=== PATIENT | female | born 1965 | race Hispanic/Latino ===

== ENCOUNTER → 2019-11-09 | Day surgery (SDC) | payer SELFPAY ==
--- NOTE | 2019-11-09 13:08 | RAD REPORT ---
EXAM DESCRIPTION: US - Follow Up [facility] - 11/09/2019 10:25 am CLINICAL HISTORY: ICD N63.0 Breast mass COMPARISON: October 2019 ultrasound. FINDINGS: The patient presented today for a biopsy of a 6 mm mass within the right breast seen on t he prior ultrasound. Sonographic evaluation by the technologist as well as myself could not reproduce a mass. The previous ly seen hypoechoic area within the upper-outer right breast was seen in one plane however it appeared to disperse on the second plane which indicated that it probably represents normal breast tissue rat her than a mass. IMPRESSION: 1. Breast biopsy was not performed as a mass could not be reproduced on today's ultrasou nd. As a precaution it is recommended that the patient have a follow-up right mammogram and right keron ast ultrasound January 2020 for re-evaluation. 2. BI-RADS cactegory 3, probably benign. BI-RAD: 3 ResultCode: PB3
== END ==
LOC: DS 09:36
PROVIDERS: ATTEND Nurse Practitioner Family
DX: N63.11 Unspecified lump in the right breast, upper outer quadrant (principal); Z53.8 Procedure and treatment not carried out for other reasons
CPT/HCPCS: 76642

== ENCOUNTER 2022-11-16 14:10 | Emergency (ER) | payer SELFPAY ==
--- OUTSIDE RECORDS SUMMARY | 2022-11-16 14:13 | XMS REPORT | Continuity of Care Document ---
:1965 Author Organization [facility] t Address [address] [place] [address] Care Team Providers Name Role Phone PCP, PATIENT DOES NOT HAVE A Primary Care Physician UnavailDB cMcann Attending Clinician Unavailable Zachary Escobar Attending Clinician Jeny Quinn Attending Clinician NELSY RESENDIZ Attending Clinician Unavailable Payers Payer Name Policy Type Policy Number Effective Date Expiration Date S vickie MEDICAID ALIEN PENDING 2022 PENDING 00:00:00 [facility] 0-100% [id number] 2013 2014 00:00:00 00:00:00 Problems Condition Condition Condition Status Onset Resolution Last Treating Co mments Source Name Details Category Date Date Treatment Clinician Date Encounter Encounter Disease Active Uni vers for other for other 04-02 ity of general general 00:00: [place] counseling counseling 00 Me dical or advice or advice Bran ch on on contracept contracept ion ion History of History of Disease Active U yamel tubal tubal - ity of ligation ligation 00:00: [place] [facility] Obese Obese Disease Active 2012-10 Univers 11-14 ity of 00:00: [place] 00 [facility] Essential Essential Disease Active 2012-10 Uni vers hypertensi hypertensi 11-14 it y of on, benign [place], [place] [facility] Hyperchole Hyperchole Disease Active 2012-10 U yamel steremia steremia 1-27 ity of 00:00: [address] Vaginal Vaginal Disease Active 2012-10 Univers dryness dryness 11-14 ity of 00:00: [address] Allergies, Adverse Reactions, Alerts Allergy Allergy Status Severity Reaction(s) Onset Inactive Treating Comm ents Source Name Type Date Date Clinician NO KNOWN Drug Active Univers ALLERGIE Class ity of S [facility] Social History Social Habit Start Date Stop Date Quantity Comments Source Exposure to Unable to assess Univers ity of SARS-CoV-2 [facility] (event) [place] Tobacco use and 2021-06-05 2021-06-05 Never used Universit y of exposure 00:00:00 00:00:00 [facility] Alcohol intake 2021-06-05 2021-06-05 Current drinker of Un iversity of 00:00:00 00:00:00 alcohol (finding) [facility] edical [place] Alcohol Comment 2018-05-26 2018-05-26 occasionally Univers ity of 00:00:00 00:00:00 [facility] Sex [birth year] Universit y of 00:00:00 00:00:00 [facility] Smoking Status Start Date Stop Date Source Never smoker [place] [facility] Medications Ordered Filled Start Stop Current Ordering Indication Dosage Frequency Signature Comments Components Source Medication Medication Date Date Medication? Clinician (SIG) Name Name NaCl 0.9% 2020- No 1000mL at 999 Uni vers (NS) bolus 06-05 mL/hr, ity of infusion 06:00: 07:19 1,000 mL, Surya as 1,000 mL 00 :00 IV Medical Piggyback, Branch ONCE, 1 dose, Thu06/05/21 at 0100, STAT azithromyci 2020- No 500mg 500 mg, IV Univers n 06-05 Piggyback, ity of (ZITHROMAX) 06:00: 06:05 [place]CE, 1 [place] 500 mg in 00 :00 dose, Thu Medic al NaCl 0.9% 06/05/21 at Bran ch (NS) 250 mL 0100, VIAL-MATE Administer IV over 60 piggyback Minutes, 250 mL
Reas on for Anti-Infec tive: Documented Infection< br>Documen eve Infection Site: Respirator y
Durat ion of Therapy: 7 days NaCl 0.9% 2020- No 500mL at 999 Univ ers (NS) bolus 06-05 mL/hr, 500 it y of infusion 04:30: 06:00 mL, IV [place] 500 mL 00 :00 Infusion, Medical ONCE, 1 Branch dose, [facility] 06/04/21 at 2330, STAT metoclopram No 10mg 10 mg, Uni vers phani HCl 06-05 Slow IV ity of (REGLAN) 04:30: 04:36 Push, [place] injection 00 :00 ONCE, 1 Medical 10 mg dose, [facility] 06/04/21 at 2330, BONI ketorolac No 30mg 30 mg, [facility] (TORADOL) 06-05 Slow IV ity of injection 04:30: 04:36 Push, [place] 30 mg 00 :00 ONCE, 1 Medical dose, [facility] 06/04/21 at 2330, Routine
tribal council member approving Restricted medication : ZACHARY MALIK F acetaminoph No 1000mg 1,000 mg, Univers en 06-05 Oral, ity of (TYLENOL) 04:22: 04:35 ONCE, 1 [place] tablet 00 :00 dose, [facility] Medical 1,000 mg 06/04/21 at [facility] h 2330, BONI NaCl 0.9% 2020- No 500mL at 999 Univ ers (NS) bolus 06-05 mL/hr, 500 it y of infusion 04:15: 06:15 mL, IV [place] 500 mL 00 :00 Piggyback, Medical ONCE, 1 Branch dose, [facility] 06/04/21 at 2315, STAT ibuprofen No 800mg 800 mg, Uni vers (IBU) 06-02 Oral, ity of tablet 800 04:45: 03:45 ONCE, 1 [place] as mg 00 :00 dose, [facility] 06/01/21 at Branch 2345, BONI acetaminoph 2020- No 1000mg 1,000 mg, Univers en 06-02 Oral, ity of (TYLENOL) 04:45: 03:45 ONCE, 1 [place] tablet 00 :00 dose, Sat Medical 1,000 mg 06/01/21 at [facility] h 2345, Routine albuterol Yes [id number] 2{puff} Inhale 2 Univers 90 8-14 Puffs ity of mcg/actuati 00:00: every 4 Surya as on inhaler 00 (four) Medical hours as Branch needed for Wheezing or Shortness of Breath. azithromyci Yes [id number] 250mg Take 1 Univers n 250 mg 8-14 tablet by ity of tablet 00:00: mouth [place] 00 daily. Medical Take 500 Branch mg day 1, then 250 mg days 2 to 5. bromphenira Yes [id number] 5mL Take 5 mL Univers mine-pseudo 8-14 by mouth 4 it y of ephedrine-D 00:00: (four[place] (BROMFED 00 times Medical DM) 2-30-10 daily as Bran ch mg/5 mL needed for syrup Congestion /Allergies or Cough. albuterol Yes [id number] 2{puff} Inhale 2 Univers 90 8-14 Puffs ity of mcg/actuati 00:00: every 4 Surya as on inhaler 00 (four) Medical hours as Branch needed for Wheezing or Shortness of Breath. azithromyci Yes [id number] 250mg Take 1 Univers n 250 mg 8-14 tablet by ity of tablet 00:00: mouth [place] 00 daily. Medical Take 500 Branch mg day 1, then 250 mg days 2 to 5. bromphenira Yes [id number] 5mL Take 5 mL Univers mine-pseudo 8-14 by mouth 4 it y of ephedrine-D 00:00: (four[place] (BROMFED 00 times Medical DM) 2-30-10 daily as Bran ch mg/5 mL needed for syrup Congestion /Allergies or Cough. predniSONE 2020- No [id number] 40mg Take 2 Univers 20 mg 8-14 08-20 tablets by ity of tablet 00:00: 04:59 mouth [place] 00 :00 daily for Medical 5 days. Branch predniSONE 2020-2020- No [id number] 40mg Take 2 Univers 20 mg 8-14 08-20 tablets by ity of tablet 00:00: 04:59 mouth [place] 00 :00 daily for Medical 5 days. Branch ALOE VERA 2018-0 Yes Take by Unive rs ORAL 8-08 mouth. ity of 18:50: [place] [address] Medical Branch DOCOSAHEXAN 2018-0 Yes Take by Uni vers OIC 8-08 mouth. ity of ACID/EPA 18:50: [place] (FISH OIL 57 Medical ORAL) Branch GARLIC ORAL 2018-0 Yes Take by Uni vers 8-08 mouth. ity of 18:50: [place] [address] Medical Branch LISINOPRIL 2018-0 Yes Take by Univ ers ORAL 8-08 mouth. ity of 18:50: [place] [address] Medical Branch LOVASTATIN 2018-0 Yes Take by Univ ers ORAL 8-08 mouth. ity of 18:50: [place] [address] Medical Branch ALOE VERA 2018-0 Yes Take by Unive rs ORAL 8-08 mouth. ity of 18:50: [place] [address] Medical Branch DOCOSAHEXAN 2018-0 Yes Take by Uni vers OIC 8-08 mouth. ity of ACID/EPA 18:50: [place] (FISH OIL 57 Medical ORAL) Branch GARLIC ORAL 2018-0 Yes Take by Uni vers 8-08 mouth. ity of 18:50: [place] [address] Medical Branch LISINOPRIL 2018-0 Yes Take by Univ ers ORAL 8-08 mouth. ity of 18:50: [place] [address] Medical Branch LOVASTATIN 2018-0 Yes Take by Univ ers ORAL 8-08 mouth. ity of 18:50: [address] Immunizations Ordered Filled Immunization Date Status Comments [facility] e Immunization Name Name TD 2012-06-11 Completed [place] of 00:00:00 [facility] TDAP 2012-06-11 Completed University of 00:00:00 [facility] Rubella 2003-08-01 Completed University of 00:00:00 [facility] Rubella 2003-08-01 Completed [facility] 00:00:00 [facility] Vital Signs Vital Name Observation Time Observation Value Comments Source Systolic blood 2021-06-05 07:00:00 114 mm[Hg] Univer sity of pressure [facility] Branch Diastolic blood 2021-06-05 07:00:00 74 mm[Hg] Unive rsity of pressure [facility] Heart rate 2021-06-05 07:00:00 97 /min [facility] Respiratory rate 2021-06-05 07:00:00 19 /min [facility] Oxygen saturation in 2021-06-05 07:00:00 94 /min University of Arterial blood by [facility] Pulse oximetry Branch Body temperature 2021-06-05 06:02:32 37.5 Betzaida [facility] Body weight 2021-06-05 02:59:00 77.111 kg [facility] BMI 2021-06-05 02:59:00 35.53 kg/m2 [facility] Body temperature 2021-06-02 05:09:00 37.22 Betzaida [facility] Systolic blood 2021-06-02 03:22:00 138 mm[Hg] Univer sity of pressure [facility] Diastolic blood 2021-06-02 03:22:00 81 mm[Hg] [facility] Heart rate 2021-06-02 03:22:00 118 /min [facility] Respiratory rate 2021-06-02 03:22:00 20 /min [facility] Body weight 2021-06-02 03:22:00 77.111 kg [facility] BMI 2021-06-02 03:22:00 35.53 kg/m2 [facility] Oxygen saturation in 2021-06-02 03:22:00 100 /min University of Arterial blood by [facility] Pulse oximetry [place] Procedures Procedure Date / Time Performed Performing Clinician Sourc e LIPASE 2021-06-05 04:17:00 Zachary Malik [facility] COMP. METABOLIC PANEL 2021-06-05 04:17:00 Zachary Malik [facility] ([id number]) [facility] CBC WITH DIFF 2021-06-05 04:17:00 Zachary Malik [facility] D-DIMER 2021-06-05 04:17:00 Zachary Malik [facility] URINALYSIS 2021-06-05 04:17:00 Zachary Malik [facility] LACTIC ACID WHOLE 2021-06-05 04:17:00 Zachary Malik [facility] CONTRAST 2021-06-05 03:29:52 Zachary Malik [facility] NOTICE OF PRIVACY 2021-06-05 02:41:46 Doctor Unassigned, No Univ [facility] CONSENT/REFUSAL FOR 2021-06-05 02:41:18 Doctor Unassigned, No [facility] [place] DIAGNOSIS AND Name Medical Branch TREATMENT XR CHEST 1 VW 2021-06-02 04:02:13 Jeny Priest [facility] CONSENT/REFUSAL FOR 2021-06-02 03:21:50 Doctor Unassigned, No [facility] [place] DIAGNOSIS AND Name Medical Branch TREATMENT Encounters Start End Encounter Admission Attending Care Care Encounter Source Date/Time Date/Time Type Type Clinicians Facility Department ID 2021-08-19 Emergency [facility] [id number] Univers 16:17:36 ity [facility] 2021-08-19 Emergency [facility] [id number] Univers [facility]22-[facility] 2022-06-05 Emergency X OBDULIO, [facility] ERT [id number] Univers 10:20:00 15:22:00 DB [facility] 2021-06-04 2021-06-05 [facility] [id number] Univers 22:01:00 02:25:00 Zachary Mcdaniels [id number] ity of [place] [id number] [facility] [id number] [address] 2021-06-01 2021-06-02 [facility] [id number] Univers 22:30:00 00:10:00 Jeny Mcdaniels [id number] i ty of [place] [id number] [facility] [id number] [address] 2013-10-05 2013-10-05 Outpatient Adrián RESENDIZ [facility] [id number] Univers 08:00:00 08:26:34 NELSY [facility] 2013-09-12 2013-09-12 Outpatient R ASTRID, [facility] [id number] Univers 12:45:00 13:17:13 NELSY biswas [facility] Results Test Description Test Time Test Comments Results Result Comments Source Lactic Acid Whole Blood 2021-06-05 05:19:54 Test Item Value Reference Range Interpretation Comme nts LACTIC ACID (test code = 6527743179) 1.91 mmol/L 0.50-2.20 Lab Interpretation (test code = 07695-1) Normal [place] [id number] 04:45:52 Test Item Value Reference Interpretation Comments Range D-DIMER (test code = See_Comment [Autom ated 0882096384) message] The system which generated this result transmitted reference range : <0.41 ?g/mL (FEU). The reference range was not used to interpret this result as normal/abnormal . MORENA (test code = This test may be MORENA) used in conjunction with a clinical pretest probability (PTP) assessment model to exclude venous thromboembolism (VTE) in patients suspected of deep venous thrombosis (DVT) and pulmonary embolism (PE) A D-Dimer value less than 0.50 ?g/ml (FEU) has a negative predicative value of 96 to 100% (95% CI)and 97 to 100% (95% CI) as an aid in the diagnosis of deep vein thrombosis (DVT) and pulmonary embolism when there is low or moderate pretest probability of PE or DVT. D-Dimer values are expressed in initial fibrinogen equivalent units (FEU)" The assay results should be used with other information, including the clinical context, in forming a diagnosis. Lab Interpretation Normal (test code = 68146-6) [place] [facility] ([id number])2021-06-05 04:44:51 Test Item Value Reference Range Interpretation Comments NA (test code = 136 mmol/L 135-145 2479883447) K (test code = 3.7 mmol/L 3.5-5.0 3135706051) CL (test code = 98 mmol/L 98-108 8229000370) CO2 TOTAL (test code = 25 mmol/L 23-31 2097259074) AGAP (test code = 2-16 3674388381) BUN (test code = 11 mg/dL 7-23 3377801327) GLUCOSE (test code = 184 mg/dL 70-110 H 3927205525) CREATININE (test code = 0.49 mg/dL 0.50-1.04 L 1905335914) TOTAL BILI (test code = 0.5 mg/dL 0.1-1.7 6804990489) CALCIUM (test code = 10.1 mg/dL 8.6-10.6 5434743541) T PROTEIN (test code = 8.5 g/dL 6.3-8.2 H 9647278548) ALBUMIN (test code = 4.5 g/dL 3.5-5.0 5625828722) ALK PHOS (test code = 50 U/L 34-122 4534107364) ALTv (test code = 28 U/L 5-35 2-6) AST(SGOT) (test code = 29 U/L 13-40 2438734120) eGFR (test code = mL/min/1.73m2 5297718675) MORENA (test code = MORENA) Association of Glomerular Filtration Rate (GFR) and Staging of Kidney Disease* + --+ --+ ------+| GFR (mL/min/1.73 m2) ?| With Kidney Damage ?| ?Without Kidney Damage+ --------+ --------+ +| ?>90 ?| ?Stage one ?| ? Normal ?+ ---+ ---+ -------+| ?60-89 ?| ?Stage two ?| ? Decreased GFR ? + --+ --+ ------+| ?30-59 ?| ?Stage three ?| ? Stage three ? + --+ --+ ------+| ?15-29 ?| ?Stage four ? | ? Stage four ?+ ---+ ---+ -------+| ?<15 (or dialysis) ? ?| ?Stage five ? | ? Stage five ?+ ---+ ---+ -------+ *Each stage assumes the associated GFR level has been in effect for at least three months. ?Stages 1 to 5, with or without kidney disease, indicate chronic kidney disease. Notes: Determination of stages one and two (with eGFR >59mL/min/1.73 m2) requires estimation of kidney damage for at least three months as defined by structural or functional abnormalities of the kidney, manifested by either:Pathological abnormalities or Markers of kidney damage (including abnormalities in the composition of the blood or urine or abnormalities in imaging tests). Lab Interpretation Abnormal (test code = 04577-0) [place] [facility] 04:44:11 Test Item Value Reference Range Interpretation Comments LIPASE (test code = 0448513281) 48 U/L 0-220 Lab Interpretation (test code = Normal 06013-1) [place] [facility]21-[facility]18 04:44:01 Test Item Value Reference Range Interpretation Comments APPEARANCE (test code = Cloudy Clear A 0617649395) COLOR (test code = Lynnette Yellow A 1326168468) PH (test code = 4.8-8.0 0332312907) SP GRAVITY (test code = 1.003-1.030 3277201185) GLU U QUAL (test code = 50 mg/dL Normal A 0824079729) BLOOD (test code = Negative Negative 9873768913) KETONES (test code = Negative Negative 6338496510) PROTEIN (test code = 100 mg/dL Negative A 2887-8) UROBILIN (test code = Normal Normal 9912528524) BILIRUBIN (test code = Negative Negative 0200467142) NITRITE (test code = Negative Negative 1364067816) LEUK SE (test code = Negative Negative 8950955327) RBC/HPF (test code = See_Comment [Autom ated message] 4112142380) The system [employer] generated this result transmit eve reference range : 0 - 3 HPF. The refe rence range was not u sed to interpret th is result as normal/abnormal . WBC/HPF (test code = See_Comment [Autom ated message] 0669749691) The system [employer] generated this result transmit eve reference range : 0 - 5 HPF. The refe rence range was not u sed to interpret th is result as normal/abnormal . BACTERIA (test code = Negative Negative 1870630093) MUCOUS (test code = Slight Negative LPF A 2588313178) SQ EPITH (test code = HPF 1017998979) CA OXALATE (test code = See_Comment [Au tomated message] 5457049069) The system [employer] generated this result transmit eve reference range : <=1 HPF. The refere nce range was not u sed to interpret th is result as normal/abnormal . Lab Interpretation (test Abnormal code = 16472-7) [facility] WITH [id number] 04:31:09 Test Item Value Reference Range Interpretation Comments WBC (test code = See_Comment [Automated 6690-2) message] The sy stem which generated this result transmitted reference range : 4.30 - 11.10 10*3/?L. The reference range was not used to interpret this result as normal/abnormal . RBC (test code = See_Comment [Automated 789-8) message] The sy stem which generated this result transmitted reference range : 3.93 - 5.25 10*6/?L. The reference range was not used to interpret this result as normal/abnormal . HGB (test code = 13.0 g/dL 11.6-15.0 718-7) HCT (test code = 38.4 % 35.7-45.2 4544-3) MCV (test code = 85.9 fL 80.6-95.5 787-2) MCH (test code = 29.1 pg 25.9-32.8 785-6) MCHC (test code = 33.9 g/dL 31.6-35.1 786-4) RDW-SD (test code = 40.8 fL 39.0-49.9 30054-8) RDW-CV (test code = 13.0 % 12.0-15.5 788-0) PLT (test code = See_Comment L [Automated 777-3) message] The sy stem which generated this result transmitted reference range : 166 - 358 10*3/ ?L. The reference r toro was not used to interpret this result as normal/abnormal . MPV (test code = 11.7 fL 9.5-12.9 94552-8) NRBC/100 WBC (test See_Comment [Automat ed code = 3964617887) message] The system which generated this result transmitted reference range : 0.0 - 10.0 /100 WBCs. The refer ence range was not u sed to interpret th is result as normal/abnormal . NRBC x10^3 (test code <0.01 See_Comment [Auto mated = 7118973195) message] The s ystem which generated this result transmitted reference range : 10*3/?L. The reference range was not used to interpret this result as normal/abnormal . GRAN MAT (NEUT) % 86.7 % (test code = 770-8) IMM GRAN % (test code 0.40 % = 6712791914) LYMPH % (test code = 7.8 % 736-9) MONO % (test code = 5.0 % 5905-5) EOS % (test code = 0.0 % 713-8) BASO % (test code = 0.1 % 706-2) GRAN MAT x10^3(ANC) 7.78 10*3/uL 1.88-7.09 H (test code = 8630779232) IMM GRAN x10^3 (test 0.04 10*3/uL 0.00-0.06 code = 5332701535) LYMPH x10^3 (test code 0.70 10*3/uL 1.32-3.29 L = 731-0) MONO x10^3 (test code 0.45 10*3/uL 0.33-0.92 = 742-7) EOS x10^3 (test code = <0.03 0.03-0.39 L 711-2) BASO x10^3 (test code <0.03 0.01-0.07 = 704-7) Lab Interpretation Abnormal (test code = 12639-7) [place] [facility]
--- NOTE | 2022-11-16 15:19 | RAD REPORT ---
EXAM DESCRIPTION: CT - CTHCSPWOC - 11/16/2022 3:07 pm CLINICAL HISTORY: pain COMPARISON: No comparisons TECHNIQUE: Axial 5 mm thick images of the head were obtained. Axial 2 mm thick images of the cervical spine were obtained with sagittal and coronal reconstruction images generated and reviewed. All CT scans are performed using dose optimization technique as appropriate and may include automated exposure control or mA/KV adjustment according to patient size. FINDINGS: CT HEAD WITHOUT CONTRAST: No acute hemorrhage, hydrocephalus or extra-axial collection is identified.No areas of brain edema or midline shift. Ethmoid air cell and maxillary sinus thickening.The calvarium is intact. CT CERVICAL SPINE WITHOUT CONTRAST: No fracture or subluxation.No prevertebral soft tissues swelling is identified. Mild multilevel cervi megan spondylosis with varying degrees of neural foraminal narrowing. This is most notable at the C5-6 level were there is moderate neural foraminal narrowing bilaterally. IMPRESSION: No acute intracranial or cervical spine findings.
[2022-11-16] MEDS ORDERED: DIAZEPAM 5 MG TABLET ONE (16:07)
[2022-11-16] MEDS ORDERED: ACETAMIN/CAFFEINE/BUTALB TAB PO ONE (16:08)
--- NOTE | 2022-11-16 16:58 | RAD REPORT ---
EXAM DESCRIPTION: RAD - Lumbar Spine 3 Views - 11/16/2022 4:52 pm CLINICAL HISTORY: RADICULOPATHY COMPARISON: <Comparisons> FINDINGS: No acute fracture. Mild thoracolumbar curvature. Mild disc height loss. Endplate spurring is present. IMPRESSION: No acute osseous abnormality involving the lumbar spine.
--- NOTE | 2022-11-16 17:01 | ER ---
Nurse's Notes [facility] Name: Mayda Church Age: 56 yrs Sex: Female : 1965 Arrival Date: 11/16/2022 Time: 14:11 Bed 11 Private MD: Amanda Aldrdige Diagnosis: Headache;Radiculopathy, lumbar region Presentation: 11/16 14:17 Chief complaint: Patient's son or daughter states: patient has had complaints of back ko1 of head pain x 4 days, also into the neck. She does have some nausea and dizziness. No numbness or weakness on either side. Coronavirus screen: Vaccine status: Patient reports receiving the 2nd dose of the covid vaccine. At this time, the client does not indicate any symptoms associated with coronavirus-19. Ebola Screen: No symptoms or risks identified at this time. Initial Sepsis Screen: Does the patient meet any 2 criteria? No. Patient's initial sepsis screen is negative. Does the patient have a suspected source of infection? No. Patient's initial sepsis screen is negative. Risk Assessment: Do you want to hurt yourself or someone else? Patient reports no desire to harm self or others. Onset of symptoms was November 12, 2022. 14:17 Method Of Arrival: Ambulatory ko1 14:17 Acuity: MELANIE 3 ko1 Triage Assessment: 14:20 General: Appears in no apparent distress. uncomfortable, Behavior is calm, cooperative, ko1 appropriate for age. Pain: Complains of pain in back of head into neck. 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 - Social history:: Smoking status: Patient denies any tobacco usage or history of. Screenin:19 [facility] ED Fall Risk Assessment (Adult) History of falling in the last 3 months, ph including since admission No falls in past 3 months (0 pts) Confusion or Disorientation No (0 pts) Intoxicated or Sedated No (0 pts) Impaired Gait No (0 pts) Mobility Assist Device Used No (0 pt) Altered Elimination No (0 pt) Score/Fall Risk Level 0 - 2 = Low Risk Oriented to surroundings, Maintained a safe environment, Hourly rounding (assess needs \T\ fall precautionary measures) done. Abuse screen: Denies threats or abuse. Denies injuries from another. Nutritional screening: No deficits noted. Tuberculosis screening: No symptoms or risk factors identified. Assessment: 16:18 General: Appears in no apparent distress. comfortable, well groomed, Behavior is calm, ph cooperative, appropriate for age, Denies fever, feeling ill. Pain: Complains of pain in occipital area and base of the skull. Pain: Complains of pain in thoracic area. Neuro: Level of Consciousness is awake, alert, obeys commands, Oriented to person, place, time, situation, Radiology Transcriptionist are equal bilaterally Moves all extremities. Gait is steady, Speech is normal, Facial symmetry appears normal, Reports dizziness, headache occipital area. Cardiovascular: Capillary refill < 3 seconds in bilateral fingers Patient's skin is warm and dry. Respiratory: Airway is patent Respiratory effort is even, unlabored. GI: Reports nausea, Patient currently denies abdominal pain. Derm: Skin is healthy with good turgor, Skin is pink, warm \T\ dry. Musculoskeletal: Circulation, motion, and sensation intact. Range of motion: intact in all extremities. Vital Signs: 14:17 BP 143 / 86; Pulse 86; Resp 16; Temp 98; Pulse Ox 95% ; Weight 72.57 kg; Height 5 ft. 0 ko1 in. (152.40 cm); 14:17 Body Mass Index 31.25 (72.57 kg, 152.40 cm) ko1 [place] Coma Score: 17:03 Eye Response: spontaneous(4). Verbal Response: oriented(5). Motor Response: obeys snw commands(6). Total: 15. ED Course: 14:11 Patient arrived in ED. am2 14:11 Amanda Aldridge is Private Physician. am2 14:20 Triage completed. ko1 14:20 Arm band placed on right wrist. Patient placed in waiting room, Patient notified of ko1 wait time. 14:40 Norma Moody FNP-C is PHCP. snw 14:40 Haroon Moore MD is Attending Physician. snw 15:09 CT Head C Spine In Process Unspecified. EDMS 15:49 Luisa Cummings RN is Primary Nurse. ph 16:19 Patient has correct armband on for positive identification. Placed in gown. Bed in low ph position. Call light in reach. Side rails up X 1. Door closed. Noise minimized. Warm blanket given. 16:54 Lumbar Spine (3 Views) XRAY In Process Unspecified. EDMS 17:00 Amanda Aldridge is Referral Physician. snw 17:18 No provider procedures requiring assistance completed. Patient did not have IV access ph during this emergency room visit. Administered Medications: 16:17 Drug: Valium (diazepam) 5 mg Route: PO; ph 17:17 Follow up: Response: No adverse reaction; Pain is decreased; RASS: Alert and Calm (0) ph 16:17 Drug: Fioricet - Esgic 325 mg-40 mg-50 mg 1 tab-caps Route: PO; ph 17:17 Follow up: Response: No adverse reaction ph Medication: 16:19 VIS not applicable for this client. ph Outcome: 17:00 Discharge ordered by MD. snw 17:18 Discharged to home ambulatory, with family. ph 17:18 Condition: good 17:18 Discharge instructions given to patient, family, Instructed on discharge instructions, follow up and referral plans. medication usage, Demonstrated understanding of instructions, follow-up care, medications, Prescriptions given X 2. 17:19 Patient left the ED. ph Signatures: Dispatcher [employer] EDMS Norma Moody, PANTRY CHEF-C PANTRY CHEF-Csnw Luisa Cummings, RN RN Mena Vilchis Kathy RN RN ko1 Corrections: (The following items were deleted from the chart) 14:23 14:17 Chief complaint: Patient's son or daughter states: patient has had complaints of ko1 back of head pain x 4 days, also into the neck. She does have some nausea and dizziness. ko1
--- NOTE | 2022-11-16 17:01 | EDPHYS ---
Physician Documentation [facility] Name: Mayda Church Age: 56 yrs Sex: Female : 1965 Arrival Date: 11/16/2022 Time: 14:11 Bed 11 Private MD: Amanda Aldridge ED Physician Haroon Moore HPI: 11/16 15:48 This 56 yrs old Female presents to ER via Ambulatory with complaints of back snw of head pain. 15:48 The patient complains of pain to the left occipital area and right occipital area. The snw patient describes the headache as a pressure. Onset: The symptoms/episode began/occurred 4 day(s) ago, and became persistent. Associated signs and symptoms: Pertinent positives: neck stiffness, Pertinent negatives: altered mental status, fever, rash. Severity of symptoms: At its worst the pain was moderate, in the emergency department the pain is unchanged. Headache History: The patient has had previous headaches and this one is similar to previous episodes. The patient has experienced similar episodes in the past, and the symptoms today are exactly the same, usually when really stressed. The patient has not recently seen a physician. 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 - Social history:: Smoking status: Patient denies any tobacco usage or history of. ROS: 15:46 Constitutional: Positive for posterior headache and tightness in shoulders x 4 days, no snw fever. Exam: 15:43 Constitutional: This is a well developed, well nourished patient who is awake, alert, snw and in no acute distress. Eyes: Pupils equal round and reactive to light, extra-ocular motions intact. Lids and lashes normal. Conjunctiva and sclera are non-icteric and not injected. Cornea within normal limits. Periorbital areas with no swelling, redness, or edema. ENT: Nares patent. No nasal discharge, no septal abnormalities noted. Tympanic membranes are normal and external auditory canals are clear. Oropharynx with no redness, swelling, or masses, exudates, or evidence of obstruction, uvula midline. Mucous membranes moist. Neck: Trachea midline, no thyromegaly or masses palpated, and no cervical lymphadenopathy. Supple, full range of motion without nuchal rigidity, or vertebral point tenderness. No Meningismus. Chest/axilla: Normal chest wall appearance and motion. Nontender with no deformity. No lesions are appreciated. Cardiovascular: Regular rate and rhythm with a normal S1 and S2. No gallops, murmurs, or rubs. Normal PMI, no JVD. No pulse deficits. Respiratory: Lungs have equal breath sounds bilaterally, clear to auscultation and percussion. No rales, rhonchi or wheezes noted. No increased work of breathing, no retractions or nasal flaring. Abdomen/GI: Soft, non-tender, with normal bowel sounds. No distension or tympany. No guarding or rebound. No evidence of tenderness throughout. Back: No spinal tenderness. No costovertebral tenderness. Full range of motion. Skin: Warm, dry with normal turgor. Normal color with no rashes, no lesions, and no evidence of cellulitis. Neuro: Awake and alert, GCS 15, oriented to person, place, time, and situation. Cranial nerves II-XII grossly intact. Motor strength 5/5 in all extremities. Sensory grossly intact. Cerebellar exam normal. Normal gait. Psych: Awake, alert, with orientation to person, place and time. Behavior, mood, and affect are within normal limits. 15:43 Head/face: Noted is tenderness, that is moderate, of the left occipital area and right occipital area. 15:43 Musculoskeletal/extremity: Extremities: grossly normal except: noted in the left leg: Pulses: are normal with no appreciated deficits, history of left lower extremity radiculopathy. anterior bilateral shoulders with tenderness, tightness. Vital Signs: 14:17 BP 143 / 86; Pulse 86; Resp 16; Temp 98; Pulse Ox 95% ; Weight 72.57 kg; Height 5 ft. 0 ko1 in. (152.40 cm); 14:17 Body Mass Index 31.25 (72.57 kg, 152.40 cm) ko1 [place] Coma Score: 17:03 Eye Response: spontaneous(4). Verbal Response: oriented(5). Motor Response: obeys snw commands(6). Total: 15. MDM: 14:57 Patient medically screened. shani 17:03 Differential diagnosis: migraine, neoplasm, sinusitis. Data reviewed: vital signs, snw nurses notes, radiologic studies, CT scan, plain films. Historians other than the Patient: Daughter/Son: Daughter. Care significantly affected by the following chronic conditions: Diabetes, Hypertension. Counseling: I had a detailed discussion with the patient and/or guardian regarding: the historical points, exam findings, and any diagnostic results supporting the discharge/admit diagnosis, the presence of at least one elevated blood pressure reading (>120/80) during this emergency department visit, radiology results, the need for outpatient follow up, for definitive care, to return to the emergency department if symptoms worsen or persist or if there are any questions or concerns that arise at home. Response to treatment: the patient's symptoms have markedly improved after treatment. Special discussion: I have referred the patient to see his PCP for further evaluation of high blood pressure. Based on the history and exam findings, there is no indication for further emergent testing or inpatient evaluation. I discussed with the patient/guardian the need to see the back specialist for further evaluation of the symptoms. I discussed with the patient/guardian the need to see the primary care provider for further evaluation of the symptoms. 11/16 14:47 Order name: CT Head C Spine; Complete Time: 15:22 snw 11/16 15:41 Order name: Lumbar Spine (3 Views) XRAY; Complete Time: 16:59 snw Administered Medications: 16:17 Drug: Valium (diazepam) 5 mg Route: PO; ph 17:17 Follow up: Response: No adverse reaction; Pain is decreased; RASS: Alert and Calm (0) ph 16:17 Drug: Fioricet - Esgic 325 mg-40 mg-50 mg 1 tab-caps Route: PO; ph 17:17 Follow up: Response: No adverse reaction ph Disposition: 17:04 Chart complete. snw Disposition Summary: 11/16/22 17:00 Discharge Ordered Location: Home snw Condition: Stable snw Diagnosis - Headache snw - Radiculopathy, lumbar region snw Followup: snw - With: Emergency Department - When: As needed - Reason: Worsening of condition Followup: snw - With: Amanda Aldridge - When: 2 - 3 days - Reason: Recheck today's complaints, Continuance of care, Re-evaluation by your physician Discharge Instructions: - Discharge Summary Sheet snw - General Headache Without Cause snw - Hypertension, Adult snw - Lumbosacral Radiculopathy snw - Muscle Cramps and Spasms snw - Form - Blood Pressure Record Sheet snw - Form - Headache Record snw Forms: - Medication Reconciliation Form snw - Thank You Letter snw - Antibiotic Education snw - Prescription Opioid Use snw Prescriptions: - Mobic 7.5 mg Oral Tablet - take 1 tablet by ORAL route once daily take with food; 20 tablet; Refills: 0, snw Product Selection Permitted - orphenadrine citrate 100 mg Oral Tablet Sustained Release - take 1 tablet by ORAL route 2 times per day As needed; 20 tablet; Refills: 0, snw Product Selection Permitted Signatures: Dispatcher [employer] EDHaroon Alarcon MD MD cha Waters, Shelly, MECHATRONICS ENGINEER-C MECHATRONICS ENGINEER-Luisa Young, RN RN Celeste Tomas RN RN ko1
[2022-11-16 17:34] VITALS: BP 143/86; TEMP 98; O2SAT 95
== END 2022-11-16 17:19 | disposition home or self-care (01) ==
LOC: ER 14:10
DX: R51.9 Headache, unspecified (principal); M54.16 Radiculopathy, lumbar region
CPT/HCPCS: 70450; 72100; 72125; 99283

== ENCOUNTER 2023-07-21 18:45 | Emergency (ER) | payer SELFPAY ==
--- OUTSIDE RECORDS SUMMARY | 2023-07-21 18:50 | XMS REPORT | Continuity of Care Document ---
:1965 Author Organization [facility] t Address [address] [facility] [address] [place] [id number] Care Team Providers Name Role Phone PCP, PATIENT DOES NOT HAVE A Primary Care Physician UnavailFELI Sheets Attending Clinician Unavailable LAB59 Attending Clinician Unavailable DB MAK Attending Clinician Unavailable Zachary Escobar Attending Clinician Jeny Quinn Attending Clinician NELSY RESENDIZ Attending Clinician Unavailable Payers Payer Name Policy Type Policy Number Effective Date Expiration Date Taylor [facility]USE [facility] 9 [id number] 2023 SILVER $[id number] 00:00:00 BASIC 94 MEDICAID ALIEN PENDING 2022 PENDING 00:00:00 [facility] 0-100% [id number] 2013 2014 00:00:00 00:00:00 Problems Condition Condition Condition Status Onset Resolution Last Treating Co mments Source Name Details Category Date Date Treatment Clinician Date Diabetes Diabetes Disease Active Kelse y mellitus mellitus 05-20 Seybol d type 2 in type 2 in 00:00: - obese obese 00 Externa l Mixed Mixed Disease Active Laurita hyperlipid hyperlipid 05-20 Se ybold emia emia 00:00: - 00 Externa l Primary Primary Disease Active Laurita hypertensi hypertensi 802 Se ybold on on 00:00: - 00 Externa l History of History of Disease Active K elsey motion motion 802 Seybold sickness sickness 00:00: - 00 Externa l Encounter Encounter Disease Active Uni vers for other for other 6-15 ity of general general 00:00: [place] counseling counseling 00 Me dical or advice or advice Bran ch on on contracept contracept ion ion History of History of Disease Active U yamel tubal tubal 6-15 ity of ligation ligation 00:00: [place] 00 [facility] Obese Obese Disease Active 2012-10 Univers 11-14 ity of 00:00: [place] [facility] Essential Essential Disease Active 2012-10 Uni vers hypertensi hypertensi 11-14 it y of on, benign [place] [facility] Hyperchole Hyperchole Disease Active 2012-10 U yamel steremia steremia 11-14 ity of 00:00: [place] 00 [facility] Vaginal Vaginal Disease Active 2012-10 Univers dryness dryness 11-14 ity of 00:00: [address] Allergies, Adverse Reactions, Alerts Allergy Allergy Status Severity Reaction(s) Onset Inactive Treating Comm ents Source Name Type Date Date Clinician NO KNOWN Drug Active Univers ALLERGIE Class ity of S [facility] Social History Social Habit Start Date Stop Date Quantity Comments Source Exposure to Unable to assess Univers ity of SARS-CoV-2 (event) [facility] Gender identity Laurita silva - External Sexual orientation Laurita Celaya - External Alcohol intake 2023-05-20 2023-05-20 Lifetime Laurita Burris bold - 00:00:00 00:00:00 non-drinker External (finding) History of Social 2023-05-20 2023-05-20 Laurita Celaya - function 00:00:00 00:00:00 External Tobacco use and 2021-06-05 2021-06-05 Never used Universit y of exposure 00:00:00 00:00:00 [facility] Alcohol Comment 2018-05-26 2018-05-26 occasionally Univers ity of 00:00:00 00:00:00 [facility] Sex [birth year] Laurita Mcclain ricardo - 00:00:00 00:00:00 External Smoking Status Start Date Stop Date Source Never smoked tobacco Laurita cerna - External Medications Ordered Filled Start Stop Current Ordering Indication Dosage Frequency Signature Comments Components Source Medication Medication Date Date Medication? Clinician (SIG) Name Name Lisinopril 2022- No 20mg Take 1 Brianna ey 20 MG oral 05-20 tablet (20 Se ybold Tablet 16:40: 00:00 mg total) - 10 :00 by mouth Externa daily l Metformin 2022-0 2022- No 500mg Take 1 Brianna ey HCl 500 MG 05-20 tablet Seybol d oral Tablet 16:39: 00:00 (500 mg - 52 :00 total) by Externa mouth in l the morning and 1 tablet (500 mg total) in the evening. Take with meals. Lisinopril Yes 20mg Take 1 Kelse y 20 MG oral 05-20 tablet (20 Sey bold Tablet 00:00: mg total) - 00 by mouth Externa daily l Meclizine 0 Yes 12.5mg [id number] Take 1 Laurita HCl 12.5 MG 05-20 [id number] tablet Seybold oral Tablet 00:00: 3D (12.5 mg - 00 total) by Externa mouth 3 l times daily as needed for dizziness Metformin 2022- Yes 1000mg Take 2 Franko sey HCl ER 500 05-20 tablets Seybo ld MG oral 00:00: 04:59 (1,000 mg - TABLET SR 00 :00 total) by Exter na 24 HR mouth in l the morning and 2 tablets (1,000 mg total) in the evening. Take with meals. NaCl 0.9% 2020- No 1000mL at 999 Uni vers (NS) bolus 06-05 mL/hr, ity of infusion 06:00: 07:19 1,000 mL, Surya as 1,000 mL 00 :00 IV Medical Piggyback, Branch ONCE, 1 dose, 06/05/21 at 0100, STAT azithromyci 2020- No 500mg [...] NaCl 0.9% 2020- No 500mL at 999 [facility] ers (NS) bolus 06-05-18 mL/hr, 500 it y of infusion 04:30: 06:00 mL, IV [place] 500 mL 00 :00 Infusion, Medical ONCE, 1 Branch dose, [facility] 06/04/21 at 2330, STAT metoclopram 2020- No 10mg 10 mg, Uni vers phani HCl 06-05 Slow IV ity of (REGLAN) 04:30: 04:36 Push, [place] injection 00 :00 ONCE, 1 Medical 10 mg dose, [facility] 06/04/21 at 2330, BONI ketorolac 2020- No 30mg 30 mg, [facility] rs (TORADOL) 06-05 Slow IV ity of injection 04:30: 04:36 Push, [place] 30 mg 00 :00 ONCE, 1 Medical dose, [facility] 06/04/21 at 2330, Routine
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 : ZACHARY MALIK F acetaminoph No 1000mg 1,000 mg, Univers en 06-05 Oral, ity of (TYLENOL) 04:22: 04:35 ONCE, 1 [place] tablet 00 :00 dose, [facility] Medical 1,000 mg 06/04/21 at [facility] h 2330, BONI NaCl 0.9% 2020- No 500mL at 999 [facility] ers (NS) bolus 06-0518 mL/hr, 500 it y of infusion 04:15: 06:15 mL, IV [place] 500 mL 00 :00 Piggyback, Medical ONCE, 1 Branch dose, [facility] 06/04/21 at 2315, STAT ibuprofen 2020- No 800mg 800 mg, Uni vers (IBU) 06-02 08-15 Oral, ity of tablet 800 04:45: 03:45 ONCE, 1 Surya as mg 00 :00 dose, [facility] Medical 06/01/21 at Branch 2345, BONI acetaminoph 2020-2020- No 1000mg 1,000 mg, Univers en 8-15 08-15 Oral, ity of (TYLENOL) 04:45: 03:45 ONCE, 1 [place] tablet 00 :00 dose, Sat Medical 1,000 mg 06/01/21 at [facility] h 2345, Routine azithromyci 2020-0 Yes [id number] 250mg Take 1 Univers n 250 mg 8-14 tablet by ity of tablet 00:00: mouth [place] 00 daily. Medical Take 500 Branch mg day 1, then 250 mg days 2 to 5. bromphenira Yes [id number] 5mL Take 5 mL Univers mine-pseudo 8-14 by mouth 4 it y of ephedrine-D 00:00: (four) [place] (BROMFED 00 times Medical DM) 2-30-10 daily as Bran ch mg/5 mL needed for syrup Congestion /Allergies or Cough. albuterol Yes [id number] 2{puff} Inhale 2 Univers 90 8-14 Puffs ity of mcg/actuati 00:00: every 4 Surya as on inhaler 00 (four) Medical hours as Branch needed for Wheezing or Shortness of Breath. azithromyci Yes [id number] 250mg Take 1 Univers n 250 mg 8-14 tablet by ity of tablet 00:00: mouth [place] 00 daily. Medical Take 500 Branch mg day 1, then 250 mg days 2 to 5. bromphenira Yes [id number] 5mL Take 5 mL Univers mine-pseudo 8-14 by mouth 4 it y of ephedrine-D 00:00: (four) [place] (BROMFED 00 times Medical DM) 2-30-10 daily as Bran ch mg/5 mL needed for syrup Congestion /Allergies or Cough. albuterol Yes [id number] 2{puff} Inhale 2 Univers 90 8-14 Puffs ity of mcg/actuati 00:00: every 4 Surya as on inhaler 00 (four) Medical hours as Branch needed for Wheezing or Shortness of Breath. predniSONE 2020- No [id number] 40mg Take 2 Univers 20 mg 8-14 08-20 tablets by ity of tablet 00:00: 04:59 mouth [place] 00 :00 daily for Medical 5 days. Branch predniSONE 0 2020- No [id number] 40mg Take 2 Univers 20 mg 814 08-20 tablets by ity of tablet 00:00: 04:59 mouth [place] 00 :00 daily for Medical 5 days. Branch ALOE VERA Yes Take by Unive rs ORAL 8-08 mouth. ity of 18:50: [address] Branch DOCOSAHEXAN Yes Take by Uni vers OIC 8-08 mouth. ity of ACID/EPA 18:50: [place] (FISH OIL 57 Medical ORAL) Branch GARLIC ORAL Yes Take by Uni vers 8-08 mouth. ity of 18:50: [address] Branch LISINOPRIL Yes Take by Univ ers ORAL 8-08 mouth. ity of 18:50: [address] Branch LOVASTATIN Yes Take by Univ ers ORAL 8-08 mouth. ity of 18:50: [address] ALOE VERA Yes Take by Unive rs ORAL 8-08 mouth. ity of 18:50: [address] Branch DOCOSAHEXAN Yes Take by Uni vers OIC 8-08 mouth. ity of ACID/EPA 18:50: [place] (FISH OIL 57 Medical ORAL) Branch GARLIC ORAL Yes Take by Uni vers 8-08 mouth. ity of 18:50: [address] Branch LISINOPRIL Yes Take by Univ ers ORAL 8-08 mouth. ity of 18:50: [address] Branch LOVASTATIN Yes Take by Univ ers ORAL 8-08 mouth. ity of 18:50: [address] Vital Signs Vital Name Observation Time Observation Value Comments Source Systolic blood 2023-05-20 21:04:00 122 mm[Hg] Laurita Celaya - pressure External Diastolic blood 2023-05-20 21:04:00 74 mm[Hg] Marly Celaya - pressure External Heart rate 2023-05-20 21:04:00 72 /min Laurita hampton - External Body temperature 2023-05-20 21:04:00 37.11 Betzaida Brianna Celaya - External Respiratory rate 2023-05-20 21:04:00 16 /min Brianna Celaya - External Body height 2023-05-20 21:04:00 149.9 cm Laurita hampton - External Body weight 2023-05-20 21:04:00 71.215 kg Laurita ruedabodelon - External BMI 2023-05-20 21:04:00 31.71 kg/m2 Laurita hampton - External Systolic blood 2021-06-05 07:00:00 114 mm[Hg] Univer sity of pressure [place] [facility] Diastolic blood 2021-06-05 07:00:00 74 mm[Hg] Unive rsity of pressure [place] [facility] Heart rate 2021-06-05 07:00:00 97 /min Universi ty [facility] [place] [facility] Respiratory rate 2021-06-05 07:00:00 19 /min Univ ersity of [place] [facility] Oxygen saturation in 2021-06-05 07:00:00 94 /min University of Arterial blood by ReTenant megan Pulse oximetry Branch Body temperature 2021-06-05 06:02:32 37.5 Betzaida Univ ersity of [place] [facility] Body weight 2021-06-05 02:59:00 77.111 kg [facility] ty [facility] [place] [facility] BMI 2021-06-05 02:59:00 35.53 kg/m2 [facility] ty [facility] [place] [facility] Body temperature 2021-06-02 05:09:00 37.22 Betzaida Univ ersity of [place] [facility] Systolic blood 2021-06-02 03:22:00 138 mm[Hg] Univer sity of pressure [place] [facility] Diastolic blood 2021-06-02 03:22:00 81 mm[Hg] Unive rsity of pressure [place] [facility] Heart rate 2021-06-02 03:22:00 118 /min [facility]i ty [facility] [place] [facility] Respiratory rate 2021-06-02 03:22:00 20 /min Univ ersity [facility] [place] [facility] Body weight 2021-06-02 03:22:00 77.111 kg [facility] [place] [facility] BMI 2021-06-02 03:22:00 35.53 kg/m2 [facility] [place] [facility] Oxygen saturation in 2021-06-02 03:22:00 100 /min University of Arterial blood by [employer] megan Pulse oximetry Branch Procedures Procedure Date / Time Performed Performing Clinician Sourc e LIPASE 2021-06-05 04:17:00 Zachary Malik [facility] COMP. METABOLIC PANEL 2021-06-05 04:17:00 [id number] CBC WITH DIFF 2021-06-05 04:17:00 Zachary Malik [facility] D-DIMER 2021-06-05 04:17:00 Zachary Malik [facility] URINALYSIS 2021-06-05 04:17:00 Zachary Malik [facility] LACTIC ACID WHOLE 2021-06-05 04:17:00 Zachary Malik [facility] BLOOD [facility] CT HEAD WO CONTRAST 2021-06-05 03:29:52 Zachary Malik [facility] NOTICE OF PRIVACY 2021-06-05 02:41:46 Doctor Unassigned, No [facility] PRACTICES [facility] CONSENT/REFUSAL FOR 2021-06-05 02:41:18 [facility], [facility] TREATMENT XR CHEST 1 VW 2021-06-02 04:02:13 Jeny Priest [facility] CONSENT/REFUSAL FOR 2021-06-02 03:21:50 Doctor Unassigned, No Un [facility] DIAGNOSIS AND Name Medical [place] TREATMENT Encounters Start End Encounter Admission Attending Care Care Encounter Source Date/Time Date/Time Type Type Clinicians Facility Department ID 2021-08-19 Emergency [facility] [id number] Univers [facility] [place] [facility]-08-19 Emergency [facility] [id number] Univers 15:34:57 [facility] 2023-06-03 2023-06-03 Outpatient LAURITA ARAYA [id number] Laurita 00:00:00 00:00:00 FELI leggett 2023-05-21 2023-05-21 Outpatient LAURITA ARAYA [id number] Laurita 00:00:00 00:00:00 FELI Seybol oleksandr 2023-05-20 2023-05-20 Outpatient LAB59 LAURITA LAURITA [id number] Laurita 16:50:00 16:50:00 Seybol d 2023-05-20 2023-05-20 Outpatient MARSHAL LAURITA LEE [id number] Luarita 16:00:00 16:00:00 FELI Griderol d 2022-06-05 2022-06-05 Emergency X OBDULIO, [facility] ERT [id number] Univers 10:20:00 15:22:[address] [facility] 2021-06-04 2021-06-05 [facility] [id number] Univers 22:01:00 02:25:00 Zachary Mcdaniels [id number] ity [facility] [id number] [facility] [id number] [address] 2021-06-01 2021-06-02 [facility] [id number] Univers 22:30:00 00:10:00 Jeny Mcdaniels [id number] i ty [facility] [id number] [facility] [id number] [address] 2013-10-05 2013-10-05 [facility] [id number] [facility] 08:00:00 08:26:34 [facility] 2013-09-12 2013-09-12 [facility] [id number] Univers 12:45:00 13:17:13 [facility] Results Test Description Test Time Test Comments Results Result Comments Source Lactic Acid Whole Blood 2021-06-05 05:19:54 Test Item Value Reference Range Interpretation Comme nts LACTIC ACID (test code = 1454741272) 1.91 mmol/L 0.50-2.20 Lab Interpretation (test code = 19449-1) [id number] 04:45:52 Test Item Value Reference Interpretation Comments Range D-DIMER (test code = See_Comment [Autom ated 2691855345) message] The system which generated this result [...] diagnosis. Lab Interpretation Normal (test code = 33328-9) [facility]. METABOLIC PANEL ([id number])2021-06-05 04:44:51 Test Item Value Reference Range Interpretation Comments NA (test code = 136 mmol/L 135-145 0113695255) K (test code = 3.7 mmol/L 3.5-5.0 4322491696) CL (test code = 98 mmol/L 98-108 9821518767) CO2 TOTAL (test code = 25 mmol/L 23-31 1927000376) AGAP (test code = 2-16 5930554889) BUN (test code = 11 mg/dL 7-23 7420307398) GLUCOSE (test code = 184 mg/dL 70-110 H 3508497141) CREATININE (test code = 0.49 mg/dL 0.50-1.04 L 3213234614) TOTAL BILI (test code = 0.5 mg/dL 0.1-1.4 3410930395) CALCIUM (test code = 10.1 mg/dL 8.6-10.6 7495426028) T PROTEIN (test code = 8.5 g/dL 6.3-8.2 H 7607166641) ALBUMIN (test code = 4.5 g/dL 3.5-5.0 6522421643) ALK PHOS (test code = 50 U/L 34-122 1826527385) ALTv (test code = 28 U/L 5-35 1742-6) AST(SGOT) (test code = 29 U/L 13-40 8410044643) eGFR (test code = mL/min/1.73m2 9030306975) MORENA (test code = MORENA) Association of [...] tests). Lab Interpretation Abnormal (test code = 59611-7) [facility] 04:44[facility]11 Test Item Value Reference Range Interpretation Comments LIPASE (test code = 3576777375) 48 U/L 0-220 Lab Interpretation (test code = Normal 76451-4) [facility] 04:44:01 Test Item Value Reference Range Interpretation Comments APPEARANCE (test code = Cloudy Clear A 4124873591) COLOR (test code = Lynnette Yellow A 5750234855) PH (test code = 4.8-8.0 6669972089) SP GRAVITY (test code = 1.003-1.030 5718817864) GLU U QUAL (test code = 50 mg/dL Normal A 9743467349) BLOOD (test code = Negative Negative 7624698167) KETONES (test code = Negative Negative 0439002404) PROTEIN (test code = 100 mg/dL Negative A 2887-8) UROBILIN (test code = Normal Normal 5596008458) BILIRUBIN (test code = Negative Negative 5110882972) NITRITE (test code = Negative Negative 3398034902) LEUK SE (test code = Negative Negative 0521155426) RBC/HPF (test code = See_Comment [Autom ated message] 4093271739) The system Sh[place] generated this result transmit eve reference range : 0 - 3 HPF. The refe rence range was not u sed to interpret th is result as normal/abnormal . WBC/HPF (test code = See_Comment [Autom ated message] 1605458006) The system Shompton generated this result transmit eve reference range : 0 - 5 HPF. The refe rence range was not u sed to interpret th is result as normal/abnormal . BACTERIA (test code = Negative Negative 8258018601) MUCOUS (test code = Slight Negative LPF A 1751711046) SQ EPITH (test code = HPF 2417548535) CA OXALATE (test code = See_Comment [Au tomated message] 1648845466) The system Sh[place] generated this result transmit eve reference range : <=1 HPF. The refere nce range was not u sed to interpret th is result as normal/abnormal . Lab Interpretation (test Abnormal code = 65086-7) [facility] WITH [id number] 04:31:09 Test Item Value Reference Range Interpretation Comments WBC (test code = See_Comment [Automated 1490-2) message] The sy stem which generated this result transmitted reference range : 4.30 - 11.10 10*3/?L. The reference range was not used to interpret this result as normal/abnormal . RBC (test code = See_Comment [Automated 809-8) message] The sy stem which generated this [...] RDW-SD (test code = 40.8 fL 39.0-49.9 19095-7) RDW-CV (test code = 13.0 % 12.0-15.5 788-0) PLT (test code = See_Comment L [Automated 777-3) message] The sy stem which generated this result transmitted reference range : 166 - 358 10*3/ ?L. The reference r toro was not used to interpret this result as normal/abnormal . MPV (test code = 11.7 fL 9.5-12.9 87371-6) NRBC/100 WBC (test See_Comment [Automat ed code = 7433505558) message] The system which generated this result transmitted reference range : 0.0 - 10.0 /100 WBCs. The refer ence range was not u sed to interpret th is result as normal/abnormal . NRBC x10^3 (test code <0.01 See_Comment [Auto mated = 8777340021) message] The s ystem which generated this result transmitted reference range : 10*3/?L. The reference range was not used to interpret this result as normal/abnormal . GRAN MAT (NEUT) % 86.7 % (test code = 770-8) IMM GRAN % (test code 0.40 % = 6545783156) LYMPH % (test code = 7.8 % 736-9) MONO % (test code = 5.0 % 5905-5) EOS % (test code = 0.0 % 713-8) BASO % (test code = 0.1 % 706-2) GRAN MAT x10^3(ANC) 7.78 10*3/uL 1.88-7.09 H (test code = 8800024701) IMM GRAN x10^3 (test 0.04 10*3/uL 0.00-0.06 code = 7846472602) LYMPH x10^3 (test code 0.70 10*3/uL 1.32-3.29 L = 731-0) MONO x10^3 (test code 0.45 10*3/uL 0.33-0.92 = 742-7) EOS x10^3 (test code = <0.03 0.03-0.39 L 711-2) BASO x10^3 (test code <0.03 0.01-0.07 = 704-7) Lab Interpretation Abnormal (test code = 34219-5) [facility]
--- NOTE | 2023-07-21 20:13 | EDPHYS ---
Physician Documentation [facility] Name: Mayda Church Age: 57 yrs Sex: Female : 1965 Arrival Date: 07/21/2023 Time: 18:45 Bed 13 Private MD: ED Physician Erick Delacruz HPI: 07/21 19:02 This 57 yrs old Female presents to ER via Ambulatory with complaints of Sore kb Throat, Cough, Headache. 19:02 The patient presents with sore throat. The patient describes throat pain as constant. kb Onset: The symptoms/episode began/occurred 3 day(s) ago. Severity of symptoms: At their worst the symptoms were moderate, in the emergency department the symptoms are unchanged. Modifying factors: The symptoms are alleviated by nothing, the symptoms are aggravated by swallowing. Associated signs and symptoms: Pertinent positives: cough, headache. The patient has not experienced similar symptoms in the past. The patient has not recently seen a physician. Pt reports sore throat, headache and cough for 3 days. Denies fever. Historical: - Allergies: 18:57 No Known Allergies; aa5 - PMHx: 18:57 Diabetes mellitus; aa5 - PSHx: 18:57 section; aa5 - Immunization history:: Adult Immunizations unknown. - Social history:: Smoking status: Patient denies any tobacco usage or history of. ROS: 19:02 Abdomen/GI: Negative for abdominal pain, nausea, vomiting, diarrhea, and constipation, kb 19:02 Constitutional: Positive for body aches, chills, 19:02 ENT: Positive for sore throat, 19:02 Respiratory: Positive for cough, 19:02 Neuro: Positive for headache, 19:02 All other systems are negative, Exam: 19:02 Constitutional: This is a well developed, well nourished patient who is awake, alert, kb and in no acute distress. Head/Face: Normocephalic, atraumatic. ENT: Moist Mucous membranes Cardiovascular: Regular rate Respiratory: Respirations even and unlabored. No increased work of breathing. Talking in full sentences Skin: Warm, dry with normal turgor. Normal color. MS/ Extremity: Pulses equal, no cyanosis. Neurovascular intact. Full, normal range of motion. Neuro: Awake and alert, GCS 15, oriented to person, place, time, and situation. Moves all extremities. Normal gait. Vital Signs: 18:56 BP 147 / 85; Pulse 89; Resp 18 S; Temp 98.8(TE); Pulse Ox 98% on R/A; Weight 72.57 kg aa5 (R); Height 5 ft. 1 in. (R); 18:56 Body Mass Index 30.23 (72.57 kg, 154.94 cm) aa5 MDM: 18:52 Patient medically screened. 19:02 Differential diagnosis: flu, covid, strep, uri. Data reviewed: vital signs, nurses kb notes. 20:12 Test considered but Not performed: X-ray: chest x-ray considered, but lungs clear kb bilaterally, resp even and unlabored. Historians other than the Patient: Daughter/Son: daughter. Counseling: I had a detailed discussion with the patient and/or guardian regarding the historical points, exam findings, and any diagnostic results supporting the discharge/admit diagnosis, lab results, the need for outpatient follow up, a family practitioner, to return to the emergency department if symptoms worsen or persist or if there are any questions or concerns that arise at home. 20:15 I considered the following discharge prescriptions or medication management in the emergency department I discussed and recommended Over The Counter medications, Antibiotics: At this time antibiotics are not recommended. 07/21 18:53 Order name: Flu; Complete Time: 19:53 kb 07/21 18:53 Order name: SARS-COV-2 RT PCR; Complete Time: 19:53 kb 07/21 18:53 Order name: Strep; Complete Time: 19:53 kb 07/21 19:44 Order name: Throat Culture EDMS Administered Medications: No medications were administered Disposition: 21:06 Co-signature as Attending Physician, Erick Delacruz MD I reviewed the patient's care rt provided by the Advanced Practice Provider and agree with the diagnosis and treatment plan. Disposition Summary: 07/21/23 20:12 Discharge Ordered Notes: Location: Home Condition: Stable Diagnosis - Acute upper respiratory infection, unspecified Followup: kb - With: Emergency Department - When: As needed - Reason: Worsening of condition Followup: kb - With: Private Physician - When: 2 - 3 days - Reason: Recheck today's complaints, Continuance of care, Re-evaluation by your physician Discharge Instructions: - Discharge Summary Sheet - Upper Respiratory Infection, Adult, Vrrv-la-Ymoe kb Forms: - Medication Reconciliation Form kb - Thank You Letter kb - Antibiotic Education kb - Prescription Opioid Use kb - Patient Portal Instructions kb - Leadership Thank You Letter kb Prescriptions: - Tessalon Perles 100 mg Oral Capsule - take 1 capsule ORAL route every 8 hours As needed; 15 capsule; Refills: 0, kb Product Selection Permitted Signatures: Dispatcher [employer] Heena Palencia FNP-C FNP-Ckb Calderon, Audri RN RN aa5 Erick Delacruz MD MD rt
--- NOTE | 2023-07-21 20:13 | ER ---
Nurse's Notes [facility] Name: Mayda Church Age: 57 yrs Sex: Female : 1965 Arrival Date: 07/21/2023 Time: 18:45 Bed 13 Private MD: Diagnosis: Acute upper respiratory infection, unspecified Presentation: 07/21 18:56 Chief complaint: Patient states: cough, headache, and sore throat x 3 days. Coronavirus aa5 screen: cough unrelated to allergies. Ebola Screen: Patient denies travel to an Ebola-affected area in the 21 days before illness onset. Initial Sepsis Screen: Does the patient meet any 2 criteria? HR > 90 bpm. Does the patient have a suspected source of infection? No. Patient's initial sepsis screen is negative. Risk Assessment: Do you want to hurt yourself or someone else? Patient reports no desire to harm self or others. Onset of symptoms was July 2023. 18:56 Method Of Arrival: Ambulatory aa5 18:56 Acuity: MELANIE 4 aa5 Historical: - Allergies: 18:57 No Known Allergies; aa5 - PMHx: 18:57 Diabetes mellitus; aa5 - PSHx: 18:57 section; aa5 - Immunization history:: Adult Immunizations unknown. - Social history:: Smoking status: Patient denies any tobacco usage or history of. Vital Signs: 18:56 BP 147 / 85; Pulse 89; Resp 18 S; Temp 98.8(TE); Pulse Ox 98% on R/A; Weight 72.57 kg aa5 (R); Height 5 ft. 1 in. (R); 18:56 Body Mass Index 30.23 (72.57 kg, 154.94 cm) aa5 ED Course: 18:51 Patient arrived in ED. im 18:52 Heena Alarcon FNP-C is [facility]. kb 18:52 Erick Delacruz MD is Attending Physician. kb 18:56 Arm band placed on. aa5 18:57 Triage completed. aa5 Administered Medications: No medications were administered Outcome: 20:12 Discharge ordered by . kb 20:49 Patient left the ED. [facility] Signatures: Heena Alarcon FNP-C FNP-Ckb Calderon, Audri RN RN 5 Joanna Cummings RN RN 3 Lissette Davey im
[2023-07-21 20:53] VITALS: BP 147/85; TEMP 98.8; O2SAT 98
== END 2023-07-21 20:49 | disposition home or self-care (01) ==
LOC: ER 18:45
DX: J06.9 Acute upper respiratory infection, unspecified (principal); Z20.822 Contact with and (suspected) exposure to COVID-19
CPT/HCPCS: 87070; 87081; 87635; 87804; 99281